=== PATIENT | female | born 1990 | race Caucasian/White ===

== ENCOUNTER → 2021-10-29 20:55 | Observation (INO) | END | disposition home or self-care (01) | LOC: 1NENULAB | PROVIDERS: ADMIT Advanced Practice Midwife; ATTEND Advanced Practice Midwife ==

== ENCOUNTER 2022-02-04 00:25 | Inpatient (IN) ==
[~2022-02-04 00:25] MED LIST: Azithromycin 500 MG in 0.9 % Sodium Chloride 250 ML IVPB PRN; Famotidine 20 MG/2 ML VIAL IVP PRN; Metoclopramide 10 MG/2 ML VIAL IVP PRN; Naloxone 0.4 MG/ML INJ IVP PRN; Ondansetron 4 MG/2 ML VIAL IVP PRN; miSOPROStoL 25 MCG TABLET PO PRN
[2022-02-04 00:45] LABS: Basophils % 0.4 %; Eosinophils # 0.2 K/mcL (0.0-0.6); Eosinophils % 2.3 %; Hematocrit 36.1 % (35.3-44.9); Hemoglobin 12.6 g/dL (11.5-15.4); Immature Granulocytes % 0.2 % (0-4); Lymphocytes % 31.6 %; Mean Corpuscular HGB Conc 34.9 g/dL (31.6-35.5); Mean Corpuscular Hemoglobin 31.8 pg (28.0-33.3); Mean Corpuscular Volume 91.2 fL (83.0-100.0); Mean Platelet Volume 12.4 fL (9.4-12.4); Monocytes # 0.6 K/mcL (0.0-1.3); Monocytes % 6.6 %; Neutrophils # 5.6 K/mcL (1.6-8.9); Platelet Count 173 K/mcL (140-400); Red Blood Count 3.96 M/mcL (3.82-4.97); Red Cell Distribution Width 13.2 % (11.5-14.5); Segmented Neutrophils % 58.9 %; White Blood Count 9.5 K/mcL (4.3-11.1)
[2022-02-04 01:44] LABS: Amphetamine Screen,Urine Negative ng/mL (Cutoff=1000); Barbiturate Screen,Urine Negative ng/mL (Cutoff=200); Benzodiazepines Screen,Urine Negative ng/mL (Cutoff=200); Cannabinoid Screen,Urine Negative ng/mL (Cutoff = 50); Cocaine Screen,Urine Negative ng/mL (Cutoff= 300); Opiate Screen,Urine Negative ng/mL (Cutoff=300); Phencyclidine Screen,Urine Negative ng/mL (Cutoff=25)
[2022-02-04] MEDS: *HR* Nalbuphine 10 MG/ML AMPUL IV PRN ×2 (01:58→04:46)
[2022-02-04] MEDS: Ringers Solution, Lactated 1,000 ML IVC SCH ×2 (05:46→07:28)
[2022-02-04] MEDS: Oxytocin 30 UNIT/503 ML BAG IVC SCH ×2 (05:50→15:36)
[2022-02-04] MEDS ORDERED: EPHEDrine sulfate 50 MG/10 ML VIAL IVP PRN ×2 (06:23→06:24)
[2022-02-04] MEDS ORDERED: Ropivacaine/PF 0.2% 20 ML VIAL EP ONE (06:23)
[2022-02-04] MEDS ORDERED: Naloxone 0.4 MG/ML INJ IVP PRN (06:23)
[2022-02-04] MEDS ORDERED: Ondansetron 4 MG/2 ML VIAL IVP PRN (06:23)
[2022-02-04] MEDS ORDERED: Epidural Premix (fent/bupiv) 110 ML EP ONE (06:27)
[2022-02-04] MEDS ORDERED: Epidural Premix (fent/bupiv) 110 ML EP SCH (06:30)
[2022-02-04] MEDS ORDERED: Benzocaine/Menthol 56 GM AEROSOL SPRAY TP PRN (13:13)
[2022-02-04] MEDS ORDERED: OXYTOCIN/RINGERS LACTATE 10 UNIT/166.6 ML BAG IVC ONE (13:13)
[2022-02-04] MEDS ORDERED: Ondansetron ODT 4 MG TAB.RAPDIS SL PRN (13:13)
[2022-02-04] MEDS ORDERED: Oxytocin 30 UNIT/503 ML BAG IVC SCH (13:13)
[2022-02-04] MEDS ORDERED: Lanolin 7 G OINT...G. TP PRN (13:13)
[2022-02-04] MEDS ORDERED: Measles/Mumps/Rubella Vacc 0.5 ML VIAL SQ PRN (13:13)
[2022-02-04] MEDS: Ibuprofen 600 MG TABLET PO SCH (14:50)
[2022-02-04] MEDS: Acetaminophen 325 MG TABLET PO SCH (19:39)
[2022-02-05] MEDS: Acetaminophen 325 MG TABLET PO SCH ×2 (02:02→08:15)
[2022-02-05] MEDS: Ibuprofen 600 MG TABLET PO SCH ×2 (02:02→08:16)
[2022-02-05] MEDS ORDERED: *HR* OxyCODONE Immed Rel 5 MG TABLET PO ONE (04:46)
[2022-02-05 07:36] VITALS: BP 111/64; TEMP 98; O2SAT 100
[2022-02-05] MEDS ORDERED: Prenatal Vit/FA 1 EACH TABLET PO SCH (09:00)
[2022-02-05 09:06] VITALS: PULSE 68
== END 2022-02-05 15:11 | disposition home or self-care (01) | DRG 768 ==
LOC: 1NENULAB → 1NENUOBS 13:17
PROVIDERS: ADMIT Obstetrics & Gynecology; ATTEND Obstetrics & Gynecology